=== PATIENT | female | born 1965 | race Caucasian/White ===

== ENCOUNTER 2019-03-07 14:05 | Emergency (ER) | payer OTHER ==
[~2019-03-07] VITALS: Ht 160 cm; Wt 61.4 kg
--- NOTE | 2019-03-07 14:50 | NUR ---
[facility] CONTACTED
--- NOTE | 2019-03-07 18:15 | NUR ---
informed of pending SART pt. Room readied.
--- NOTE | 2019-03-07 18:20 | NUR ---
SART processes explained with pt's verbal consent given. Pt advocate, Lexus, [facility] present.
--- NOTE | 2019-03-07 18:30 | NUR ---
Written consent for SART exam obtained after review, again, of process. Pt's urine, from 1750 void, sent to lab. Exam started.
[2019-03-07 18:41] LABS: CLARITY,URINE SLIGHTLY CLOUDY (Clear); COLOR,URINE YELLOW (Yellow); GLUCOSE, URINE NEGATIVE (Neg); KETONES,URINE NEGATIVE (Neg); LEUKOCYTE ESTERASE ,URINE LARGE (Neg); NITRITES, URINE NEGATIVE (Neg); OCCULT BLOOD,URINE TRACE-INTACT (Neg); PH,URINE 6.5 (4.8-8.0); PROTEIN,URINE NEGATIVE (Neg); UROBILINOGEN,URINE 0.2 E.U/dL (0.2-1.0)
[2019-03-07 18:51] LABS: UA COLLECTION TYPE VOIDED
[2019-03-07 18:55] LABS: RBC,URINE 0-2 /HPF (0-2)
[2019-03-07 18:56] LABS: BACTERIA,URINE 2+ /HPF (Neg); MUCUS STRANDS MODERATE /LPF (Neg); SQUAMOUS EPITHELIAL CELL,UR MODERATE /LPF (FEW)
[2019-03-07] MEDS ORDERED: CEPH-572 PO (21:15)
[2019-03-07] MEDS ORDERED: DOCU-148 PO (21:15)
--- NOTE | 2019-03-07 21:20 | NUR ---
Prohylactic STI medications administered as per EDMD verbal/written order after allergies reviewed and education including side effects provided.
--- NOTE | 2019-03-07 21:30 | NUR ---
Pt showered with pt advocate and RN escort to showers. Personal hygiene kit provided by RN and clean clothing provided by pt advocate Lexus.
[2019-03-07] MEDS ORDERED: metroNIDAZOLE 500mg tablet PO ONE (22:05)
[2019-03-07] MEDS ORDERED: CefTRIAXone 250MG IM Kit w/LIDOcaine IM ONE (22:05)
[2019-03-07] MEDS ORDERED: azithromycin 250mg tablet PO ONE (22:05)
[2019-03-07 23:38] VITALS: BP 124/104
== END 2019-03-07 21:50 | disposition home or self-care (01) ==
LOC: ER 14:06 → EEVIPCON 14:06 → ER 21:50
DX: S31.831A Laceration without foreign body of anus, initial encounter (principal); T74.21XA Adult sexual abuse, confirmed, initial encounter; N39.0 Urinary tract infection, site not specified; Z79.2 Long term (current) use of antibiotics; Z79.899 Other long term (current) drug therapy; Y93.89 Activity, other specified; Y92.89 Other specified places as the place of occurrence of the external cause; Y99.8 Other external cause status
CPT/HCPCS: 81001; 87088; 96372; 99283; 99284